=== PATIENT | male | born 1940 | race Caucasian/White ===

== ENCOUNTER 2020-08-01 16:41 | Inpatient (IN) ==
[2020-08-01] MEDS ORDERED: SODIUM CHLORIDE 0.9% 1,000 ML IV STA ×2 (16:56→19:50)
[2020-08-01 18:02] LABS: Basophils % 0.2 % (0.0-0.8); Eosinophils # 0.1 10*3/uL (0.0-0.87); Eosinophils % 0.8 % (0.00-10.9); Hematocrit 47.5 VOL% (42.0-52.0); Hemoglobin 15.2 GM/DL (14.0-18.0); Immature Granulocytes % 0.2 %; Immature Granulocytes Absolute 0.02 #; Lymphocytes # 1.7 10*3/uL (1.4-4.0); Lymphocytes % 19.4 % (21.2-54.2); Mean Corpuscular Volume 98.3 FL (87-102); Mean Platelet Volume 10.3 FL (9.6-12.0); Monocytes % 7.3 % (1.7-12.7); Neutrophils % 72.1 % (38.7-73.9); Platelet Count 191 T/CUMM (130-400); Red Blood Count 4.83 MC/CUMM (3.8-5.5); Red Cell Distribution Width 17.6 % (9.3-17.3); White Blood Count 8.7 T/CUMM (4-12)
[2020-08-01 18:40] LABS: INR 1.3; PT Patient Result 13.4 SECS (9.8-11.9)
[2020-08-01 18:57] LABS: Albumin 2.4 G/DL (3.4-5.0); Bilirubin,Total 2.5 MG/DL (0.2-1.0); Calcium 12.3 MG/DL (8.5-10.1); Osmolality,Calculated 329.2 MOS/KG (273-304); Total Protein 7.5 G/DL (6.4-8.3)
[2020-08-01] MEDS ORDERED: DEXTROSE 50% 25 GM/50 ML VIAL IV STA (19:01)
[2020-08-01] MEDS ORDERED: DEXTROSE 50% 25 GM/50 ML SYRINGE IV ONE (19:05)
[2020-08-01] MEDS ORDERED: GLUCAGON 1 MG VIAL IM PRN (20:35)
[2020-08-01] MEDS ORDERED: DOCUSATE SODIUM 100 MG CAPSULE PO PRN (20:35)
[2020-08-01] MEDS ORDERED: DEXTROSE 50% 25 GM/50 ML VIAL IV PRN (20:35)
[2020-08-01] MEDS ORDERED: ONDANSETRON 4 MG/2 ML VIAL IV PRN (20:35)
[2020-08-01] MEDS: DEXTROSE 5% NACL 0.45% 1,000 ML IV SCH (21:50)
[2020-08-01 22:41] LABS: Hepatitis B Core IgM Quant 0.06 Index; Hepatitis B Surface Ag Quant < 0.10 Index; Hepatitis B Surface Ag Result Negative (Negative); Hepatitis C Virus Ab Result Negative (Negative)
[2020-08-01 22:59] LABS: Bacteria,Urine Occasional /HPF (Few); Bilirubin,Urine Negative (Negative); Blood, Urine Negative (Negative); Glucose,Urine (UA) Negative (Negative); Hyaline Casts,Urine 9 /LPF (0-3); Ketones,Urine Negative (Negative); Mucus,Urine Occasional /LPF (Occasional); Nitrite,Urine Negative (Negative); Protein,Urine Negative; RBC,Urine 3 /HPF (0-4); Squamous Epithelial Cell,Urine Occasional /HPF (0-10); Urine Appearance CLEAR (Clear); Urine Color Amber (Yellow); Urine Specific Gravity 1.026 (1.001-1.035); WBC,Urine 9 /HPF (0-6)
[2020-08-01 23:35] LABS: Cancer Antigen 19-9 7.9 U/ML (0-37); Carcinoembryonic Antigen < 0.5 NG/ML (0.0-5.0)
[2020-08-02] MEDS: LACTULOSE 20 GM/30 ML UDCUP PO SCH ×3 (00:25→20:50)
[2020-08-02 06:28] LABS: Basophils % 0.4 % (0.0-0.8); Eosinophils # 0.2 10*3/uL (0.0-0.87); Hematocrit 37.9 VOL% (42.0-52.0); Immature Granulocytes % 0.2 %; Immature Granulocytes Absolute 0.01 #; Lymphocytes # 1.1 10*3/uL (1.4-4.0); Lymphocytes % 18.7 % (21.2-54.2); Mean Corpuscular HGB Conc 32.7 GM/DL (32-36); Mean Corpuscular Volume 96.4 FL (87-102); Mean Platelet Volume 10.2 FL (9.6-12.0); Monocytes % 6.2 % (1.7-12.7); Neutrophils % 71.5 % (38.7-73.9); Red Blood Count 3.93 MC/CUMM (3.8-5.5); Red Cell Distribution Width 16.7 % (9.3-17.3)
[2020-08-02 06:32] LABS: Albumin 2.1 G/DL (3.4-5.0); Bilirubin,Total 2.8 MG/DL (0.2-1.0); Calcium 11.3 MG/DL (8.5-10.1); Osmolality,Calculated 323.5 MOS/KG (273-304); Total Protein 6.4 G/DL (6.4-8.3)
[2020-08-02 06:32] LABS: Hemoglobin 12.4 GM/DL (14.0-18.0); Platelet Count 143 T/CUMM (130-400); White Blood Count 5.7 T/CUMM (4-12)
[2020-08-02] MEDS: DEXTROSE 5% NACL 0.45% 1,000 ML IV SCH ×3 (06:36→17:29)
[2020-08-02] MEDS: PANTOPRAZOLE 40 MG TABLET PO SCH (08:06)
[2020-08-02] MEDS ORDERED: LACTATED RINGERS 500 ML IV ONE (09:15)
[2020-08-02] MEDS ORDERED: DEXTROSE 5% 1,000 ML IV SCH (09:30)
[2020-08-02] MEDS: HYDROCORTISONE 100 MG VIAL IV SCH ×3 (10:04→20:53)
[2020-08-02] MEDS ORDERED: POTASSIUM PHOSPHATE 30 MMOL in SODIUM CHLORIDE 0.9% 250 ML IV ONE (11:30)
[2020-08-03 01:10] LABS: Hematocrit 40.4 VOL% (42.0-52.0); Hemoglobin 12.6 GM/DL (14.0-18.0); Immature Granulocytes % 0.2 %; Immature Granulocytes Absolute 0.01 #; Lymphocytes # 0.4 10*3/uL (1.4-4.0); Mean Corpuscular HGB Conc 31.2 GM/DL (32-36); Mean Corpuscular Volume 100.7 FL (87-102); Mean Platelet Volume 10.2 FL (9.6-12.0); Monocytes % 3.7 % (1.7-12.7); Neutrophils % 85.1 % (38.7-73.9); Platelet Count 88 T/CUMM (130-400); Red Blood Count 4.01 MC/CUMM (3.8-5.5); Red Cell Distribution Width 16.7 % (9.3-17.3)
[2020-08-03 01:37] LABS: Calcium 10.8 MG/DL (8.5-10.1); Osmolality,Calculated 316.3 MOS/KG (273-304)
[2020-08-03 01:40] LABS: Platelet Estimate Decreased
[2020-08-03] MEDS: HYDROCORTISONE 100 MG VIAL IV SCH ×2 (04:02→10:25)
[2020-08-03] MEDS: DEXTROSE 5% NACL 0.45% 1,000 ML IV SCH ×3 (04:05→15:49)
[2020-08-03] MEDS ORDERED: SODIUM CHLORIDE 0.9% 1,000 ML IV SCH (08:00)
[2020-08-03] MEDS ORDERED: HYDROCORTISONE 100 MG VIAL IV SCH (10:00)
[2020-08-03] MEDS: LACTULOSE 20 GM/30 ML UDCUP PO SCH (10:45)
[2020-08-03] MEDS: PANTOPRAZOLE 40 MG TABLET PO SCH (10:46)
[2020-08-03] MEDS ORDERED: LORazepam 2 MG/1 ML VIAL IV ONE (20:06)
[2020-08-04] MEDS: DEXTROSE 5% NACL 0.45% 1,000 ML IV SCH ×2 (00:42→17:37)
[2020-08-04 06:25] LABS: Calcium 10.5 MG/DL (8.5-10.1)
[2020-08-04] MEDS ORDERED: fentaNYL 50 MCG/HR PATCH TRANSDERM SCH (09:05)
[2020-08-05 12:02] VITALS: BP 97/69
== END 2020-08-05 13:50 | disposition hospice, home (50) | DRG 640 ==
LOC: EDUNIT# → EDBD → N.ED 16:41 → N.3E 21:29
PROVIDERS: ADMIT Internal Medicine; ATTEND Internal Medicine